=== PATIENT | female | born 1960 | race Caucasian/White ===

== ENCOUNTER 2022-03-05 13:58 | Emergency (ER) | payer BC ==
[~2022-03-05] VITALS: Ht 170.2 cm; Wt 106.0 kg
[2022-03-05 14:12] VITALS: BP 168/72
[2022-03-05] MEDS ORDERED: TETanus/Pertussis (Acell)/Diphther VAC/PF (Tdap-Adult) 0.5ml syringe IMVAC ONE (15:10)
[2022-03-05] MEDS ORDERED: LIDOcaine 1% W/epiNEPHrine 1:100,000 20ml vial SQ ONE (15:10)
[2022-03-05] MEDS ORDERED: acetaminophen 325mg tablet PO ONE (15:10)
[2022-03-05] MEDS ORDERED: LIDOCAINE 1%/EPI 1:100,000 inj. 10 ML multi-dose vial SQ ONE (15:25)
== END 2022-03-05 17:21 | disposition home or self-care (01) ==
LOC: ER 14:00
DX: S81.012A Laceration without foreign body, left knee, initial encounter (principal); S80.02XA Contusion of left knee, initial encounter; S80.01XA Contusion of right knee, initial encounter; M25.562 Pain in left knee; M25.561 Pain in right knee; M25.572 Pain in left ankle and joints of left foot; J45.909 Unspecified asthma, uncomplicated; E11.9 Type 2 diabetes mellitus without complications; Z88.0 Allergy status to penicillin; Z88.1 Allergy status to other antibiotic agents; Z88.6 Allergy status to analgesic agent; Z88.8 Allergy status to other drugs, medicaments and biological substances; W19.XXXA Unspecified fall, initial encounter; Y93.89 Activity, other specified; Y92.89 Other specified places as the place of occurrence of the external cause; Y99.8 Other external cause status
CPT/HCPCS: 12001; 73564; 73610; 90471; 90715; 99284; A6222; J7030; A6446; A6449